=== PATIENT | female | born 1950 ===

== ENCOUNTER 2019-11-12 09:13 | Day surgery (SDC) | payer BC, OTHER ==
[~2019-11-12 09:13] MED LIST: Buffered Lidocaine 1% SYRIN* 1 ML/SYRINGE INTRADERM ONE; Dexamethasone IV* 4 MG/ML 1 ML (4 MG) IV SLOW PU ONE; Famotidine IV* 10 MG/ML 2 ML (20 mg) IV ONE; Lactated Ringers 1000 ML Bag* 1,000 ML IV SCH
[2019-11-12] MEDS ORDERED: Dexamethasone IV* 4 MG/ML 1 ML (4 MG) ONE (09:17)
[2019-11-12] MEDS ORDERED: Famotidine IV* 10 MG/ML 2 ML (20 mg) ONE (09:17)
[2019-11-12] MEDS ORDERED: fentaNYL* 50 MCG/ML 2 ML VIAL (100 MCG VIAL) IV PRN (11:29)
[2019-11-12] MEDS ORDERED: Ondansetron INJ* 2 MG/ML VIAL IV PRN (11:29)
[2019-11-12] MEDS ORDERED: oxyCODONE/Acetamin 5/325 MG* TAB PO PRN (11:29)
[2019-11-12] MEDS ORDERED: Naloxone* 0.4 MG/ML 1 ML VIAL IV PRN (11:29)
[2019-11-12] MEDS ORDERED: DiMENhydriNATE IV* 50 MG/ML VIAL IV PUSH PRN (11:29)
[2019-11-12] MEDS ORDERED: Ketorolac INJ* 30 MG/ML 1 ML VIAL ONE (11:38)
[2019-11-12] MEDS ORDERED: Midazolam* 1 MG/ML 5 ML VIAL (5 MG) ONE (11:38)
[2019-11-12] MEDS ORDERED: fentaNYL* 50 MCG/ML 5 ML VIAL (250 MCG VIAL) ONE (11:38)
[2019-11-12] MEDS ORDERED: Ondansetron INJ* 2 MG/ML VIAL ONE (11:38)
[2019-11-12] MEDS ORDERED: Propofol* 500 MG/50 ML BTL ONE (11:39)
[2019-11-12] MEDS ORDERED: Lidocaine 2% PF * 5 ML VIAL ONE (11:39)
[2019-11-12] MEDS ORDERED: EPHEDrine (Pressors)* 50 MG/ML VIAL ONE (11:56)
[2019-11-12] MEDS ORDERED: Glycopyrrolate IV* 0.2 MG/ML 1 ML VIAL ONE (12:21)
[2019-11-12] MEDS ORDERED: Ibuprofen TAB* 600 MG PO PRN (12:50)
[2019-11-12 14:52] VITALS: BP 133/80
--- NOTE | 2019-11-13 01:38 | OP ---
DATE OF OPERATION: 11/12/19 - [facility] DATE OF : 54 SURGEON: Susan An MD ANESTHESIOLOGIST: Dr. Vargas. ANESTHESIA: General endotracheal anesthesia. 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 OPERATIVE PROCEDURE: Dilation, hysteroscopy, MyoSure polypectomy, curettage, and biopsy of the perineum. ESTIMATED BLOOD LOSS: Minimal, less than 20 cc. SPECIMEN: 1. Endometrial polyp with endometrial curettings. 2. Perineal biopsy from 6 o'clock at the introitus. FLUIDS: Per Anesthesia. DRAINS: 200 cc of fluid on the MyoSure. FINDINGS: Small midline uterus. Stenotic cervix. Uterus sounds to 7. There was a large multilobed endometrial polyp that originated anterior to the left tubal ostia. The polyp filled the endometrium extending to the level of the internal os. There was thinning and whitening of the perineal skin in a figure- of-eight distribution surrounding the introitus and the anus. 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 No raised or ulcerated lesions, and a 5 mm urethral caruncle. COMPLICATIONS: None. COUNTS: Sponge, lap, and needle counts were correct x2. CONDITION: The patient was brought to the recovery room awake and in stable condition. DESCRIPTION OF PROCEDURE: The patient was brought to the operating room. When and general anesthesia was found to be adequate, the patient was prepped and draped in the usual sterile fashion in the dorsal lithotomy position. A time- out was performed. Exam under anesthesia was performed with the above findings noted. A weighted speculum was placed in the vagina. The anterior lip of the cervix was grasped with a single-tooth tenaculum. The cervical os was closed. There was a small dimple in the midline. Using the smallest Angelo dilators, able to gradually dilate the cervix up to a size 8 Hegar dilator. The MyoSure was then introduced. The large polyp was seen. The polyp was removed with the MyoSure REACH in its entirety. The remainder of the endometrium appeared atrophic. Both tubal ostia were visualized. The endocervical canal appeared normal. All instruments were removed from the vagina. There was excellent hemostasis at the site of the single- tooth tenaculum. Attention was then turned to the perineum and a 5 mm punch biopsy was performed at 6 o'clock at the entrance to the introitus. One suture of 4-0 Vicryl was placed to obtain excellent hemostasis and islam of anatomy. Sponge, lap, and needle counts were correct x2, and the patient was brought to recovery room, awake and in stable condition. [id number]/[facility] #: [id number] [facility]ENTERKeyon
== END 2019-11-12 14:55 | disposition home or self-care (01) ==
LOC: OR 09:13
PROVIDERS: ATTEND Obstetrics & Gynecology
DX: N84.0 Polyp of corpus uteri (principal); L98.8 Other specified disorders of the skin and subcutaneous tissue; N88.2 Stricture and stenosis of cervix uteri; M19.90 Unspecified osteoarthritis, unspecified site; F32.9 Major depressive disorder, single episode, unspecified; E78.00 Pure hypercholesterolemia, unspecified; K21.9 Gastro-esophageal reflux disease without esophagitis; Z87.891 Personal history of nicotine dependence
CPT/HCPCS: 81025; 88305; J1100; J1885; J2250; J2405; J2704; J3010